=== PATIENT | male | born 1985 | race Two or more races ===

== ENCOUNTER 2024-10-11 23:44 | Emergency (ER) | payer OTHER ==
[~2024-10-11] VITALS: Ht 177.8 cm; Wt 74.8 kg
[2024-10-12 00:04] VITALS: BP 110/70; TEMP 97.9; O2SAT 97
== END 2024-10-12 02:06 | disposition home or self-care (01) ==
LOC: ER 23:46
DX: F15.10 Other stimulant abuse, uncomplicated (principal); R42 Dizziness and giddiness; Z02.89 Encounter for other administrative examinations
CPT/HCPCS: 82962-TC